=== PATIENT | female | born 1990 | race Caucasian/White ===

== ENCOUNTER 2025-07-04 11:53 | Emergency (ER) | payer BC ==
[~2025-07-04] VITALS: Ht 172.7 cm; Wt 69.4 kg
[2025-07-04] MEDS ORDERED: KETOROLAC TROMETHAMINE INJ 30 MG/ML VIAL ONE (12:40)
[2025-07-04] MEDS: KETOROLAC TROMETHAMINE INJ 30 MG/ML VIAL IM ONE ×2 (12:42→12:49)
[2025-07-04] MEDS ORDERED: CYCL5TAB PO (13:54)
[2025-07-04] MEDS ORDERED: KETO10TA2 PO (13:54)
[2025-07-04] MEDS ORDERED: oxyCODONE/APAP (5/325 MG) 1 UDTAB TABLET ONE (14:07)
[2025-07-04] MEDS ORDERED: CYCLOBENZAPRINE 10 MG TABLET ONE (14:07)
[2025-07-04] MEDS: oxyCODONE/APAP (5/325 MG) 1 UDTAB TABLET PO ONE (14:11)
[2025-07-04] MEDS: CYCLOBENZAPRINE 10 MG TABLET PO ONE (14:12)
[2025-07-04 15:06] VITALS: BP 119/70; TEMP 98.3; O2SAT 96
== END 2025-07-04 15:00 | disposition home or self-care (01) ==
LOC: ER 12:00
DX: M25.561 Pain in right knee (principal); Z88.0 Allergy status to penicillin
CPT/HCPCS: 99283; 96372; 73564; J1885